=== PATIENT | female | born 2000 | race Caucasian/White ===

== ENCOUNTER 2021-06-04 11:19 | Outpatient (CLI) | payer OTHER ==
[2021-06-04 12:08] LABS: Basophils % (A) 0 %; Eosinophils % (A) 0 %; HCT 34.5 % (34.0-46.0); Lymphocytes # (A) 1.1 k/uL (1.0-4.8); Lymphocytes % (A) 10 %; MCH 31.1 pg (25.0-35.0); MCHC 34.9 g/dL (31.0-37.0); MCV 88.9 fL (80.0-100.0); Monocytes # (A) 0.3 k/uL (0-1.0); Monocytes % (A) 3 %; Neutrophils # (A) 9.3 k/uL (1.3-7.7); Neutrophils % (A) 85 %; Platelet Count 250 k/uL (150-450); RBC 3.88 m/uL (3.80-5.40); WBC 10.9 k/uL (3.8-10.6)
[2021-06-04 12:16] LABS: Protein/Creatinine Ratio,Urine 0.516
[2021-06-04 12:29] LABS: Appearance,Urine Clear (Clear); Bacteria,Urine Rare /hpf; Bilirubin,Urine Negative (Negative); Blood,Urine Negative (Negative); Color,Urine Light Yellow; Glucose,Urine (UA) Negative (Negative); Ketones,Urine Negative (Negative); Leukocyte Esterase,Urine Small (Negative); Mucus,Urine Rare /hpf; Nitrite,Urine Negative (Negative); PH, Urine 6.5 (5.0-8.0); Protein,Urine Negative (Negative); RBC,Urine 1 /hpf (0-5); Specific Gravity,Urine 1.006 (1.001-1.035); Squamous Epithelial Cell,Urine 1 /hpf (0-4); Urobilinogen,Urine <2.0 mg/dL (<2.0); WBC,Urine 2 /hpf (0-5)
[2021-06-04 12:42] LABS: ALT 15 U/L (4-34); AST 19 U/L (14-36); African American GFR (CKD) >90 (>60 ml/min/1.73 sqM); Blood Urea Nitrogen 7 mg/dL (7-17); LDH 470 U/L (313-618); Non-African American GFR(CKD) >90 (>60 ml/min/1.73 sqM); Uric Acid 4.8 mg/dL (3.7-7.4)
[2021-06-04 13:13] VITALS: BP 141/85; PULSE 99; RESP 16; TEMP 98.2
--- NOTE | 2021-06-08 18:43 | P.MSEPDOC ---
Presenting Problems - Arrival Data Date of Arrival on Unit: 06/04/21 Time of Arrival on Unit: 11:19 Mode of Transport: Stretcher - Complaint OB-Reason for Admission/Chief Complaint: PIH Comment: pt to triage with orders for pih eval Medical History - Information : 1 Para: 0 Term: 0 : 0 Abortions: Spontaneous or Elective: 0 Number of Living Children: 0 - Gestational Age Gestational Age by TOMMY (wks/days): 29 Weeks and 3 Days Review of Systems - Review of Systems Constitutional: No problems Breast: No problems ENT: No problems Cardiovascular: No problems Respiratory: No problems Gastrointestinal: No problems Genitourinary: No problems Musculoskeletal: No problems Neurological: No problems Skin: No problems Vital Signs - Temperature Temperature: 98.2 F Temperature Source: Oral - Pulse Right Sitting Pulse Rate: 99 Pulse Assessment Method: Automatic Cuff - Respirations Respiratory Rate: 16 Oxygen Delivery Method: Room Air - Blood Pressure Right Arm Blood Pressure: 141/85 Blood Pressure Mean: 103 Blood Pressure Source: Automatic Cuff Medical Screen Scoring - Assessment - Baby A Baseline FHR: 140 Heart Rate - NICHD Category: Category I (Normal) NST: Reactive Physician Notification - Physician Notified Physician Notified Date: 06/04/21 Physician Notified Time: 12:53 Physician: Lore Donovan Order Received: Yes (D/c home) Maternal Triage Index - Scheduled/Requesting Priority 5 Scheduled/Requesting Priority 5: Yes Criteria Met for Priority 5: writtin orders for PIH eval Disposition - Disposition OB Disposition: Discharge to home Discharge Date: 06/04/21 Discharge Time: 13:03 I agree with the RN Medical Screening Exam: Yes Case reviewed; plan agreed upon as documented in EMR&OBIX.: Yes Diagnosis: MILD TO MODERATE PRE-ECLAMPSIA, THIRD TRIMESTER
== END 2021-06-04 13:03 | disposition home or self-care (01) ==
LOC: FBPOP 11:19
PROVIDERS: ATTEND Obstetrics & Gynecology
DX: O14.03 Mild to moderate pre-eclampsia, third trimester (principal); Z3A.29 29 weeks gestation of pregnancy
CPT/HCPCS: 59025; 81001; 82565; 82570; 83615; 84156; 84450; 84460; 84520; 84550; 85025

== ENCOUNTER → 2021-06-16 | Outpatient (CLI) | payer OTHER ==
[2021-06-16 17:12] LABS: Appearance,Urine Clear (Clear); Bilirubin,Urine Negative (Negative); Blood,Urine Negative (Negative); Color,Urine Light Yellow; Glucose,Urine (UA) Negative (Negative); Ketones,Urine Negative (Negative); Leukocyte Esterase,Urine Negative (Negative); Nitrite,Urine Negative (Negative); Protein,Urine Negative (Negative); Specific Gravity,Urine 1.009 (1.001-1.035); Urobilinogen,Urine <2.0 mg/dL (<2.0)
[2021-06-16 17:26] LABS: Creatinine,Urine Random 62.9 mg/dL; Protein/Creatinine Ratio,Urine 0.223
[2021-06-17 00:11] LABS: HCT 32.2 % (37.2-46.3); HGB 10.7 g/dL (12.0-15.0); MCH 29.7 pg (27.0-32.0); MCHC 33.2 g/dL (32.0-37.0); MCV 89.4 fL (80.0-97.0); Mean Platelet Volume 10.9 fL (9.5-12.2); Platelet Count 246 X 10*3/uL (140-440); RDW 13.7 % (11.5-14.5)
== END | disposition home or self-care (01) ==
LOC: LABWHC1 16:03
PROVIDERS: ATTEND Obstetrics & Gynecology
DX: O13.9 Gestational [pregnancy-induced] hypertension without significant proteinuria, unspecified trimester (principal); Z3A.00 Weeks of gestation of pregnancy not specified
CPT/HCPCS: 36415; 81003; 82565; 82570; 83615; 84156; 84450; 84460; 84520; 84550; 85027

== ENCOUNTER 2021-06-26 13:17 | Outpatient (CLI) | payer OTHER ==
[2021-06-26 15:30] VITALS: BP 141/88; PULSE 66; RESP 16; TEMP 97.7
--- NOTE | 2021-06-26 15:53 | US ---
EXAMINATION TYPE: US OB BPP wo non-stress DATE OF EXAM: 06/26/2021 COMPARISON: NONE CLINICAL HISTORY: 20-year-old female gestational hypertension, pos. COVID test 06/25/21. . EXAM PERFORMED: Transabdominal (TA) with real-time observation by the air traffic systems technician FINDINGS: BPP PARAMETERS: PRESENTATION: Vertex LIE: Longitudinal?? HEART RATE: 133 bpm RHYTHM: Normal DORA: 12.8cm DIAPHRAGM IMAGED: yes BPP SCORIN. Breathin (1 episode of breathing of 30 second duration in 30 minutes of scanning time) 2. Movement: 2 (at least 3 discrete body movements in 30 minutes) 3. Tone: 2 (1 episode of active flexion/extension of limb) 4. DORA: 2 (DORA index > 5cm) IMPRESSION: TOTAL SCORE: 8 / 8
--- NOTE | 2021-06-26 18:54 | P.MSEPDOC ---
Presenting Problems - Arrival Data Date of Arrival on Unit: 06/26/21 Time of Arrival on Unit: 13:15 Mode of Transport: Portable - Complaint OB-Reason for Admission/Chief Complaint: Other Comment: preg indused hypertension. positive covid test. sent with orders . bpp,nst and bp checks, call report. Medical History - Information : 1 Para: 0 Term: 0 : 0 Abortions: Spontaneous or Elective: 0 Number of Living Children: 0 - Gestational Age Final EDC: 08/17/21 Gestational Age by TOMMY (wks/days): 84 Weeks and 5 Days - History Complications: Other Comment: high bp's Review of Systems - Review of Systems Constitutional: No problems Breast: No problems ENT: No problems Cardiovascular: No problems Respiratory: No problems Gastrointestinal: No problems Genitourinary: No problems Musculoskeletal: No problems Neurological: No problems Skin: No problems Vital Signs - Temperature Temperature: 97.7 F Temperature Source: Temporal Artery Scan - Pulse Right Radial Pulse Rate: 66 Pulse Assessment Method: Automatic Cuff - Respirations Respiratory Rate: 16 Oxygen Delivery Method: Room Air O2 Sat by Pulse Oximetry: 98 - Blood Pressure Right Arm Blood Pressure: 141/88 Blood Pressure Mean: 105 Blood Pressure Source: Automatic Cuff Medical Screen Scoring - Assessment - Baby A Baseline FHR: 135 Heart Rate - NICHD Category: Category I (Normal) NST: Reactive Physician Notification - Physician Notified Physician Notified Date: 06/26/21 Physician Notified Time: 15:00 Physician: Berto Asher Order Received: Yes - Notification Comment Comment: discharge home with instruction return saturday for repeat. Maternal Triage Index - Maternal Triage Index Presenting for scheduled procedure w/no complaint: Yes - Scheduled/Requesting Priority 5 Scheduled/Requesting Priority 5: Yes Criteria Met for Priority 5: dr order for bpp,nst and serial bps Disposition - Disposition OB Disposition: Discharge to home, Written follow up instructions reviewed Discharge Date: 06/26/21 Discharge Time: 15:05 I agree with the RN Medical Screening Exam: Yes Case reviewed; plan agreed upon as documented in EMR&OBIX.: Yes Diagnosis: GESTATIONAL HTN W/O SIGNIFICANT PROTEINURIA, THIRD TRIMESTER (Patient presents to labor and delivery for scheduled nonstress test and biophysical profile. She is being followed by maternal medicine and Dr. Jenner for gestational hypertension. Nonstress test is reassuring and biophysical was 8 out of 8. I did review her blood pressures in the. Her to be stable from her baseline. Patient was instructed to return on Saturday as scheduled at that time will have repeat blood work, nonstress test and biophysical profile.)
== END 2021-06-26 15:05 | disposition home or self-care (01) ==
LOC: FBPOP 13:17
PROVIDERS: ATTEND Obstetrics & Gynecology
DX: O13.3 Gestational [pregnancy-induced] hypertension without significant proteinuria, third trimester (principal); Z3A.34 34 weeks gestation of pregnancy
CPT/HCPCS: 59025; 76819

== ENCOUNTER → 2021-06-30 | Outpatient (CLI) | payer OTHER ==
[2021-06-30 14:09] LABS: Creatinine,Urine Random 67.2 mg/dL; Protein/Creatinine Ratio,Urine 0.238
[2021-06-30 14:23] LABS: Basophils % (A) 0 %; Eosinophils % (A) 1 %; HCT 34.3 % (34.0-46.0); Lymphocytes # (A) 0.5 k/uL (1.0-4.8); Lymphocytes % (A) 10 %; MCV 88.5 fL (80.0-100.0); Mean Platelet Volume 8.1; Monocytes # (A) 0.3 k/uL (0-1.0); Monocytes % (A) 5 %; Neutrophils # (A) 3.9 k/uL (1.3-7.7); Neutrophils % (A) 83 %; Platelet Count 185 k/uL (150-450); RBC 3.88 m/uL (3.80-5.40); RDW 13.5 % (11.5-15.5); WBC 4.7 k/uL (3.8-10.6)
[2021-06-30 14:29] LABS: ALT 36 U/L (4-34); AST 34 U/L (14-36); African American GFR (CKD) >90 (>60 ml/min/1.73 sqM); Blood Urea Nitrogen 5 mg/dL (7-17); LDH 573 U/L (313-618); Non-African American GFR(CKD) >90 (>60 ml/min/1.73 sqM); Uric Acid 4.7 mg/dL (3.7-7.4)
[2021-06-30 14:32] LABS: Amorphous Sediment,Urine Rare /hpf; Appearance,Urine Cloudy (Clear); Bacteria,Urine Occasional /hpf; Bilirubin,Urine Negative (Negative); Blood,Urine Negative (Negative); Color,Urine Yellow; Glucose,Urine (UA) Negative (Negative); Hyaline Casts,Urine 1 /lpf (0-2); Ketones,Urine Negative (Negative); Leukocyte Esterase,Urine Negative (Negative); Mucus,Urine Rare /hpf; Nitrite,Urine Negative (Negative); Protein,Urine Negative (Negative); Squamous Epithelial Cell,Urine 2 /hpf (0-4); Urobilinogen,Urine <2.0 mg/dL (<2.0); WBC,Urine 4 /hpf (0-5)
== END | disposition home or self-care (01) ==
LOC: FBPOP 12:55
PROVIDERS: ATTEND Obstetrics & Gynecology
DX: O13.9 Gestational [pregnancy-induced] hypertension without significant proteinuria, unspecified trimester (principal); Z3A.00 Weeks of gestation of pregnancy not specified
CPT/HCPCS: 81001; 82565; 82570; 83615; 84156; 84450; 84460; 84520; 84550; 85025

== ENCOUNTER 2021-07-03 12:46 | Inpatient (IN) | payer BC, OTHER ==
--- NOTE | 2021-07-03 17:45 | ED ---
General Adult HPI - General Chief complaint: Shortness of Breath Stated complaint: Covid+ Time Seen by Provider: 07/03/21 17:35 Source: patient, RN notes reviewed Mode of arrival: ambulatory Limitations: no limitations - History of Present Illness Initial comments: 20-year-old female, alert and oriented 4, presents to the emergency room with complaints of being positive for coronavirus for the past 10 days. Patient states yesterday she had a low-grade fever and took Tylenol. She states she was scheduled for a nonstress test today at 1:00 but was told to come to the emergency room for evaluation for coronavirus. She does state that she has a dr y persistent cough. She states that she has a pulse oximeter at home and it was measuring 92-93%. She states that she has had high blood pressure with this and is seeing Dr. Donovan and another doctor in [place], Dr. Gonzalez, for high risk and he opted not to put her on blood pressure medications at this time. This is her first . She denies any vaginal bleeding. She states that she does have a headache from persistent coughing no vision changes. She does not want the monoclonal antibody infusion and she has not been vaccinated. She denies any nausea vomiting or diarrhea. -: days(s) (10) Location: chest Severity scale (1-10): 7 Associated Symptoms: cough, fever/chills, other (congestion) Treatments Prior to Arrival: other (tylenol) - Related Data Home Medications Medication Instructions Recorded Confirmed Pnv No.95/Ferrous Fum/Folic AC 1 tab PO DAILY 06/04/21 07/03/21 [ Multivitamin Tablet] Acetaminophen Tab [Tylenol Tab] 1,000 mg PO Q12H PRN 06/30/21 07/03/21 Allergies Allergy/AdvReac Type Severity Reaction Status Date / Time No Known Allergies Allergy Verified 07/03/21 19:48 Review of Systems ROS Statement: Those systems with pertinent positive or pertinent negative responses have been documented in the HPI. ROS Other: All systems not noted in ROS Statement are negative. Past Medical History Additional Past Medical History / Comment(s): gestational HTN History of Any Multi-Drug Resistant Organisms: None Reported Past Psychological History: No Psychological Hx Reported Smoking Status: Never smoker Past Alcohol Use History: None Reported Past Drug Use History: None Reported General Exam Limitations: no limitations General appearance: alert, in no apparent distress Head exam: Present: atraumatic, normocephalic, normal inspection Eye exam: Present: normal appearance, EOMI. Absent: scleral icterus, conjunctival injection, periorbital swelling ENT exam: Present: normal exam, normal oropharynx, mucous membranes moist Neck exam: Present: normal inspection, full ROM. Absent: tenderness, meningismus, lymphadenopathy, thyromegaly Respiratory exam: Present: normal lung sounds bilaterally. Absent: respiratory distress, wheezes, rales, rhonchi, stridor Cardiovascular Exam: Present: tachycardia GI/Abdominal exam: Present: soft, distended. Absent: tenderness, guarding, rebound, rigid Extremities exam: Present: normal inspection, full ROM, normal capillary refill. Absent: tenderness, pedal edema, joint swelling, calf tenderness Back exam: Present: normal inspection, full ROM. Absent: tenderness, CVA t enderness (R), CVA tenderness (L), rash noted Neurological exam: Present: alert, oriented X3 Psychiatric exam: Present: normal affect, normal mood Skin exam: Present: warm, dry, intact, normal color. Absent: rash, cyanosis, diaphoretic Course Vital Signs 07/03/21 07/03/21 07/03/21 16:54 17:48 19:41 Temperature 98.9 F 98.4 F Pulse Rate 124 H 136 H 126 H Respiratory 22 18 16 Rate Blood Pressure 161/89 152/91 129/82 O2 Sat by Pulse 97 96 96 Oximetry - Reevaluation(s) Reevaluation #1: 07/03/21 20:16 Patient states that she has a headache from the persistent coughing and was offered Tylenol. Time: 20:16 EKG Findings - EKG Results: EKG: sinus rhythm EKG shows: tachycardia (Ventricular rate of 122, IA interval of 0.166, QRS 0.74, QTC 0.436) Medical Decision Making - Medical Decision Making This is a 20-year-old well-appearing female that presents to the emergency room, 33 weeks . Patient states she was scheduled for a stress test in labor and delivery today however she did test positive for coronavirus and was told to come down to be evaluated in the emergency room first. She states that her oxygen saturation was running 92-93% at home. She was offered monoclonal antibodies and she declined. She has not been vaccinated. Urinalysis shows 1+ protein, 2+ ketones, 17 wbc's and few bacteria. She was given a gram of Rocephin IV for asymptomatic bacteriuria. She was also given a 1000 mL bolus. Patient's blood pressure has improved without intervention. She denies any blurred vision and states headache with coughing. Her LDH is 863 AST 64 ALT 71. I did speak with Dr. Perez at 1958, He evaluated patient in the emergency room at 2210 and she'll be transferred to [facility] by Dr. Villanueva to be treated by Dr. Barrera. Patient is agreeable to this plan of care. I also discussed this case with Dr. Mandel. - Lab Data Result diagrams: 07/03/21 17:54 07/03/21 17:54 Lab Results 07/03/21 07/03/21 07/03/21 Range/Units 17:54 17:54 17:54 WBC 6.5 (3.8-10.6) k/uL RBC 4.01 (3.80-5.40) m/uL Hgb 12.7 (11.4-16.0) gm/dL Hct 34.6 (34.0-46.0) % MCV 86.3 (80.0-100.0) fL MCH 31.6 (25.0-35.0) pg MCHC 36.7 (31.0-37.0) g/dL RDW 14.1 (11.5-15.5) % Plt Count 183 (150-450) k/uL MPV 8.7 Neutrophils % 84 % Lymphocytes % 12 % Monocytes % 3 % Eosinophils % 0 % Basophils % 0 % Neutrophils # 5.5 (1.3-7.7) k/uL Lymphocytes # 0.8 L (1.0-4.8) k/uL Monocytes # 0.2 (0-1.0) k/uL Eosinophils # 0.0 (0-0.7) k/uL Basophils # 0.0 (0-0.2) k/uL Manual Slide Review Performed Toxic Granulation Present RBC Morphology Normal Hyperchromasia Moderate Sodium 135 L (137-145) mmol/L Potassium 3.3 L (3.5-5.1) mmol/L Chloride 108 H (98-107) mmol/L Carbon Dioxide 19 L (22-30) mmol/L Anion Gap 8 mmol/L BUN 5 L (7-17) mg/dL Creatinine 0.48 L (0.52-1.04) mg/dL Est GFR (CKD-EPI)AfAm >90 (>60 ml/min/1.73 sqM) Est GFR (CKD-EPI)NonAf >90 (>60 ml/min/1.73 sqM) Glucose 124 H (74-99) mg/dL Uric Acid 4.7 (3.7-7.4) mg/dL Calcium 8.7 (8.4-10.2) mg/dL Total Bilirubin 0.8 (0.2-1.3) mg/dL AST 64 H (14-36) U/L ALT 71 H (4-34) U/L Alkaline Phosphatase 137 H (38-126) U/L Lactate Dehydrogenase 863 H (313-618) U/L Total Protein 6.0 L (6.3-8.2) g/dL Albumin 3.3 L (3.5-5.0) g/dL Urine Color Yellow Urine Appearance Cloudy H (Clear) Urine pH 6.5 (5.0-8.0) Ur Specific [place] 1.019 (1.001-1.035) Urine Protein 1+ H (Negative) Urine Glucose (UA) Negative (Negative) Urine Ketones 2+ H (Negative) Urine Blood Negative (Negative) Urine Nitrite Negative (Negative) Urine Bilirubin Negative (Negative) Urine Urobilinogen 2.0 (<2.0) mg/dL Ur Leukocyte Esterase Large H (Negative) Urine RBC 2 (0-5) /hpf Urine WBC 17 H (0-5) /hpf Ur Squamous Epith Cells 8 H (0-4) /hpf Urine Bacteria Few H (None) /hpf Hyaline Casts 1 (0-2) /lpf Urine Mucus Few H (None) /hpf Disposition Clinical Impression: Preeclampsia Disposition: OTHER INSTITUTION NOT DEFINED Condition: Stable Is patient prescribed a controlled substance at d/c from ED?: No Time of Disposition: 22:12
[2021-07-03 17:49] VITALS: TEMP 98.4
[2021-07-03] MEDS ORDERED: SODIUM CHLORIDE 0.9% 500 ML 500 ML IV ONE (17:55)
[2021-07-03 18:15] LABS: ALT 71 U/L (4-34); AST 64 U/L (14-36); African American GFR (CKD) >90 (>60 ml/min/1.73 sqM); Albumin 3.3 g/dL (3.5-5.0); Alkaline Phosphatase 137 U/L (38-126); Anion Gap 8 mmol/L; Blood Urea Nitrogen 5 mg/dL (7-17); Calcium 8.7 mg/dL (8.4-10.2); Carbon Dioxide 19 mmol/L (22-30); Chloride 108 mmol/L (98-107); Glucose 124 mg/dL (74-99); LDH 863 U/L (313-618); Non-African American GFR(CKD) >90 (>60 ml/min/1.73 sqM); Potassium 3.3 mmol/L (3.5-5.1); Sodium 135 mmol/L (137-145); Total Bilirubin 0.8 mg/dL (0.2-1.3); Uric Acid 4.7 mg/dL (3.7-7.4)
[2021-07-03 18:21] LABS: Appearance,Urine Cloudy (Clear); Bacteria,Urine Few /hpf; Bilirubin,Urine Negative (Negative); Blood,Urine Negative (Negative); Color,Urine Yellow; Glucose,Urine (UA) Negative (Negative); Hyaline Casts,Urine 1 /lpf (0-2); Ketones,Urine 2+ (Negative); Leukocyte Esterase,Urine Large (Negative); Mucus,Urine Few /hpf; Nitrite,Urine Negative (Negative); PH, Urine 6.5 (5.0-8.0); Protein,Urine 1+ (Negative); RBC,Urine 2 /hpf (0-5); Specific Gravity,Urine 1.019 (1.001-1.035); Squamous Epithelial Cell,Urine 8 /hpf (0-4); WBC,Urine 17 /hpf (0-5)
[2021-07-03] MEDS ORDERED: cefTRIAXone IN SWFI 1,000 MG/10 ML SYRINGE IVP STA (18:36)
[2021-07-03 19:27] LABS: Basophils % (A) 0 %; Eosinophils % (A) 0 %; HCT 34.6 % (34.0-46.0); HGB 12.7 gm/dL (11.4-16.0); Hyperchromasia Moderate; Lymphocytes # (A) 0.8 k/uL (1.0-4.8); Lymphocytes % (A) 12 %; MCH 31.6 pg (25.0-35.0); MCHC 36.7 g/dL (31.0-37.0); MCV 86.3 fL (80.0-100.0); Mean Platelet Volume 8.7; Monocytes # (A) 0.2 k/uL (0-1.0); Monocytes % (A) 3 %; Neutrophils # (A) 5.5 k/uL (1.3-7.7); Neutrophils % (A) 84 %; Platelet Count 183 k/uL (150-450); RBC 4.01 m/uL (3.80-5.40); RDW 14.1 % (11.5-15.5); WBC 6.5 k/uL (3.8-10.6)
[2021-07-03 19:42] VITALS: BP 129/82; PULSE 126; RESP 16
[2021-07-03] MEDS ORDERED: SODIUM CHLORIDE 0.9% 500 ML 500 ML IV STA (19:58)
[2021-07-03] MEDS ORDERED: NALOXONE 0.4 MG/ML 1 ML VIAL IV PRN (20:02)
[2021-07-03] MEDS ORDERED: ACETAMINOPHEN TAB 325 MG TAB PO PRN (20:02)
[2021-07-03 20:04] LABS: Toxic Granulation Present
[2021-07-03] MEDS ORDERED: BETAMET ACET-BETAMETH SOD PHOS 6 MG/ML MDV IM SCH (20:30)
--- NOTE | 2021-07-03 20:42 | P.TRANS ---
Providers Expected date of discharge: 07/03/21 Primary care physician: Moises Bess Kaiser Hospital Course: HERMILO is a 20-year-old 1. As 0 at 33 weeks gestation who has a history of gestational hypertension and gestational diabetes for which she has previously seen maternal medicine in [place]. Today she had worsening of symptoms of her coated that was diagnosed 8 days ago. She had a cough and some congestion- like symptoms for which she came to the emergency room. In the emergency room she had initial blood pressure 160/90 followed by 155/90. They did were pre- clamped labs. All this was done without notifying myself. I was recently notified of her presence in the emergency room and labs and blood pressures. She did have a series of preeclamptic labs drawn on June 16 showing normal AST and ALTs of 14 and an LDH of 176 as well as a normal platelet count of 246 she has had reactive nonstress tests and biophysical profiles done both locally and with maternal medicine. Her labs however through emergency room today reveal elevation of both AST and Janee in the 65-70 range and a LDH of 863 with platelets decreased to 183. While platelets are normal it is decreased from prior sample. Her latest blood pressure with some hydration and symptom control is 120/80. He was provided with an antibiotic in the ED for possible bladder infection. She did have 2+ ketones as well as 1+ blood on their sample. We have added a protein creatinine ratio and are planning to give 1 dose of Celestone as precaution for stimulation of lung maturity. The initial plan from my standpoint was to admit her and observe her with serial blood pressures and nonstress test and biophysical profile with repeat labs in the morning, however, in speaking with maternal medicine they would feel more comfortable if we transfer her this evening and had them do a more detailed evaluation. We'll go and discuss with the patient the current plan. And arrange for transfer. Otherwise her vital signs show tachycardia with a heart rate in the 120s which could be the result of her dehydration or Covid. On physical exam Heart regular but tachycardic, lungs essentially clear. She does have some abdominal cramping we are sending and delivery nurses down to do a nonstress test at this time. She is otherwise in no significant acute distress and her primary complaint is coughing and congestion. Patient Condition at Discharge: Stable Plan - Transfer Summary Transfer Medications: Active Medications Generic Name Dose Route Start Last Admin Trade Name Freq PRN Reason Stop Dose Admin Acetaminophen 650 mg 07/03/21 20:02 Acetaminophen Tab 325 Mg Tab PO Q6HR PRN Mild Pain or Fever > 100.5 Betamethasone Acet/Betameth SodPhos 12 mg 07/03/21 20:30 Betamet Acet-Betameth Sod Phos 6 Mg/Ml Mdv IM 07/04/21 20:31 Q24H ANSHUL Naloxone HCl 0.2 mg 07/03/21 20:02 Naloxone 0.4 Mg/Ml 1 Ml Vial IV Q2M PRN Opioid Reversal Follow up Appointment(s)/Referral(s): Moises Del Rosario MD [Primary Care Provider] - 1-2 days
[2021-07-03 22:21] LABS: Creatinine,Urine Random 164.7 mg/dL; Protein/Creatinine Ratio,Urine 0.182
== END 2021-07-03 23:52 | disposition short-term general hospital (02) | DRG 831 ==
LOC: EC 12:46 → 4FBP 20:03
PROVIDERS: ADMIT Obstetrics & Gynecology; ATTEND Obstetrics & Gynecology
DX: O98.513 Other viral diseases complicating pregnancy, third trimester (principal); U07.1 COVID-19; Z3A.33 33 weeks gestation of pregnancy; O24.419 Gestational diabetes mellitus in pregnancy, unspecified control; O13.3 Gestational [pregnancy-induced] hypertension without significant proteinuria, third trimester; E86.0 Dehydration; Z53.29 Procedure and treatment not carried out because of patient's decision for other reasons
CPT/HCPCS: 36415; 80053; 81001; 82570; 83615; 84156; 84550; 85025; 87086; 87635; 93005

== ENCOUNTER 2021-07-04 20:12 | Outpatient (CLI) | payer BC, OTHER ==
[2021-07-04] MEDS ORDERED: BETAMET ACET-BETAMETH SOD PHOS 6 MG/ML MDV IM ONE (20:30)
[2021-07-04 21:31] VITALS: PULSE 120
== END 2021-07-04 20:40 | disposition home or self-care (01) ==
LOC: FBPOP 20:12
PROVIDERS: ATTEND Obstetrics & Gynecology
DX: O14.90 Unspecified pre-eclampsia, unspecified trimester (principal); Z3A.00 Weeks of gestation of pregnancy not specified
CPT/HCPCS: 96372; J0702

== ENCOUNTER 2021-07-07 13:05 | Outpatient (CLI) | payer BC, OTHER ==
[2021-07-07 14:15] VITALS: BP 122/86; PULSE 104; RESP 16; TEMP 97.5
--- NOTE | 2021-07-09 07:59 | P.MSEPDOC ---
Presenting Problems - Arrival Data Date of Arrival on Unit: 07/07/21 Time of Arrival on Unit: 13:05 Mode of Transport: Ambulatory - Complaint OB-Reason for Admission/Chief Complaint: NST Comment: Pt arrives to triage for bi-weekly NST. Medical History - Information : 1 Para: 0 Term: 0 : 0 Abortions: Spontaneous or Elective: 0 Number of Living Children: 0 - Gestational Age Gestational Age by TOMMY (wks/days): 34 Weeks and 1 Days Review of Systems - Review of Systems Constitutional: No problems Breast: No problems ENT: No problems Cardiovascular: No problems Respiratory: No problems Gastrointestinal: No problems Genitourinary: No problems Musculoskeletal: No problems Neurological: No problems Skin: No problems Vital Signs - Temperature Temperature: 97.5 F Temperature Source: Oral - Pulse Pulse Oximetery Pulse Rate: 104 Pulse Assessment Method: Pulse Oximetry - Respirations Respiratory Rate: 16 Oxygen Delivery Method: Room Air O2 Sat by Pulse Oximetry: 96 - Blood Pressure Right Arm Blood Pressure: 122/86 Blood Pressure Mean: 98 Blood Pressure Source: Automatic Cuff Medical Screen Scoring - Assessment - Baby A Baseline FHR: 140 Heart Rate - NICHD Category: Category I (Normal) NST: Reactive Physician Notification - Physician Notified Physician Notified Date: 07/07/21 Physician Notified Time: 13:59 Physician: Berto Asher New Order Received: Yes - Notification Comment Comment: Orders to discharge patient home. Maternal Triage Index - Maternal Triage Index Presenting for scheduled procedure w/no complaint: Yes - Scheduled/Requesting Priority 5 Scheduled/Requesting Priority 5: Yes Criteria Met for Priority 5: Bi-weekly NST Disposition - Disposition OB Disposition: Discharge to home Discharge Date: 07/07/21 Discharge Time: 14:00 I agree with the RN Medical Screening Exam: Yes Case reviewed; plan agreed upon as documented in EMR&OBIX.: Yes Diagnosis: RELATED CONDITIONS, UNSPECIFIED, THIRD TRIMESTER Additional Diagnoses: Patient presented to triage for a nonstress test per in order given by her primary chain maker loom control. Unfortunately there is no documentation of the indication for the nonstress test. Regardless, nonstress testing is normal and heart tones are category 1. Patient's discharge home follow up as instructed by her primary chain maker loom control.
== END 2021-07-07 14:00 | disposition home or self-care (01) ==
LOC: FBPOP 13:05
PROVIDERS: ATTEND Obstetrics & Gynecology
DX: O26.93 Pregnancy related conditions, unspecified, third trimester (principal); Z3A.34 34 weeks gestation of pregnancy
CPT/HCPCS: 59025; 99213

== ENCOUNTER 2021-07-10 12:59 | Outpatient (CLI) | payer BC, OTHER ==
[2021-07-10 14:25] LABS: Creatinine,Urine Random 114.7 mg/dL; Protein/Creatinine Ratio,Urine 0.157
[2021-07-10 14:26] LABS: Appearance,Urine Cloudy (Clear); Bacteria,Urine Few /hpf; Bilirubin,Urine Negative (Negative); Blood,Urine Negative (Negative); Budding Yeast,Urine Occasional /hpf; Color,Urine Yellow; Glucose,Urine (UA) Negative (Negative); Ketones,Urine Negative (Negative); Leukocyte Esterase,Urine Large (Negative); Mucus,Urine Rare /hpf; Nitrite,Urine Negative (Negative); PH, Urine 6.5 (5.0-8.0); Protein,Urine Trace (Negative); RBC,Urine 1 /hpf (0-5); Specific Gravity,Urine 1.021 (1.001-1.035); Squamous Epithelial Cell,Urine 6 /hpf (0-4); WBC,Urine 31 /hpf (0-5)
[2021-07-10 14:44] LABS: Basophils % (A) 0 %; Eosinophils # (A) 0.1 k/uL (0-0.7); Eosinophils % (A) 1 %; HCT 31.2 % (34.0-46.0); HGB 11.3 gm/dL (11.4-16.0); Hyperchromasia Slight; Lymphocytes % (A) 14 %; MCH 30.9 pg (25.0-35.0); MCHC 36.2 g/dL (31.0-37.0); MCV 85.3 fL (80.0-100.0); Mean Platelet Volume 8.2; Monocytes # (A) 0.3 k/uL (0-1.0); Monocytes % (A) 4 %; Neutrophils % (A) 80 %; Platelet Count 307 k/uL (150-450); RBC 3.66 m/uL (3.80-5.40); RDW 13.8 % (11.5-15.5); WBC 7.5 k/uL (3.8-10.6)
[2021-07-10 14:52] LABS: ALT 278 U/L (4-34); AST 98 U/L (14-36); African American GFR (CKD) >90 (>60 ml/min/1.73 sqM); Blood Urea Nitrogen 9 mg/dL (7-17); LDH 643 U/L (313-618); Non-African American GFR(CKD) >90 (>60 ml/min/1.73 sqM); Uric Acid 4.8 mg/dL (3.7-7.4)
[2021-07-10 15:43] VITALS: BP 134/81; PULSE 117; RESP 16; TEMP 97.9
--- NOTE | 2021-07-11 07:34 | P.MSEPDOC ---
Presenting Problems - Arrival Data Date of Arrival on Unit: 07/10/21 Time of Arrival on Unit: 12:59 Mode of Transport: Ambulatory - Complaint OB-Reason for Admission/Chief Complaint: NST, Other Comment: Written orders per Dr. Donovan for PIH labs and NST. Medical History - Information : 1 Para: 0 Term: 0 : 0 Abortions: Spontaneous or Elective: 0 Number of Living Children: 0 - Gestational Age Gestational Age by TOMMY (wks/days): 34 Weeks and 4 Days Review of Systems - Review of Systems Constitutional: No problems Breast: No problems ENT: No problems Cardiovascular: No problems Respiratory: No problems Gastrointestinal: No problems Genitourinary: No problems Musculoskeletal: No problems Neurological: No problems Skin: No problems Vital Signs - Temperature Temperature: 97.9 F Temperature Source: Temporal Artery Scan - Pulse Right Brachial Pulse Rate: 117 Pulse Assessment Method: Automatic Cuff - Respirations Respiratory Rate: 16 Oxygen Delivery Method: Room Air - Blood Pressure Right Arm Blood Pressure: 134/81 Blood Pressure Mean: 98 Blood Pressure Source: Automatic Cuff Medical Screen Scoring - Assessment - Baby A Baseline FHR: 140 Heart Rate - NICHD Category: Category I (Normal) NST: Reactive Physician Notification - Physician Notified Physician Notified Date: 07/10/21 Physician Notified Time: 15:19 Physician: Lore Donovan Order Received: Yes - Notification Comment Comment: Dr. Donovan called back to give orders. Orders recieved to d/c pt to home. To. educate pt to come back if symptoms noted. To educate pt to keep apt with Dr. Donovan for. 07/12. Maternal Triage Index - Stat/Priority 1 Stat Priority 1: No - Urgent/Priority 2 Urgent Priority 2: No - Prompt/Priority 3 Prompt Priority 3: No - Non-Urgent/Priority 4 Non-Urgent Priority 4: No - Scheduled/Requesting Priority 5 Scheduled/Requesting Priority 5: Yes Criteria Met for Priority 5: Written orders for PIH labs and NST. Disposition - Disposition OB Disposition: Discharge to home Discharge Date: 07/10/21 Discharge Time: 15:30 I agree with the RN Medical Screening Exam: Yes Case reviewed; plan agreed upon as documented in EMR&OBIX.: Yes Diagnosis: MILD TO MODERATE PRE-ECLAMPSIA, THIRD TRIMESTER
== END 2021-07-10 15:30 | disposition home or self-care (01) ==
LOC: FBPOP 12:59
PROVIDERS: ATTEND Obstetrics & Gynecology
DX: O14.03 Mild to moderate pre-eclampsia, third trimester (principal); O13.9 Gestational [pregnancy-induced] hypertension without significant proteinuria, unspecified trimester; O14.90 Unspecified pre-eclampsia, unspecified trimester; Z3A.34 34 weeks gestation of pregnancy
CPT/HCPCS: 59025; 81001; 82565; 82570; 83615; 84156; 84450; 84460; 84520; 84550; 85025; 99213

== ENCOUNTER 2021-07-27 05:53 | Inpatient (IN) | payer BC, OTHER ==
--- NOTE | 2021-07-26 15:01 | P.HPOB ---
History of Present Illness H&P Date: 07/26/21 Chief Complaint: Pre-eclampsia without severe features This is a 20 y.o. female, 1, para 0, with an estimated date of confinement of 08/17/2021, estimated gestational age of 37-0/7 weeks who presents for induction of labor due to gestational hypertension and pre-eclampsia without severe features. She is feeling irregular contractions and pressure. She does get occasional headaches. She has been seeing [facility] since about 30 weeks and she did have elevated transaminases and P/C ratio. Lately these have improved and she is not on antihypertensives. [facility] recommends delivery at 37 weeks. In addition she recently had COVID and has recovered. OB Hx: Electronic Assembler Hx: No history of STDs Social Hx: Single. Works full-time as MA. Labs: Hepatitis B surface antigen-neg RPR-NR [id number] Blood type-A+ Antibody screen-neg HIV-NR Hemoglobin-12.6 Toxoplasma-neg Random glucose-86 GC/Chlamydia/Trich-neg 1 hr. GTT- 103 GBS-neg Review of Systems Constitutional: Denies chills, Denies fever Eyes: denies blurred vision, denies pain Ears, nose, mouth and throat: Reports headache (occ), Denies sore throat Cardiovascular: Denies chest pain, Denies shortness of breath Respiratory: Denies cough Gastrointestinal: Reports abdominal pain (irregular contractions), Denies diarrhea, Denies nausea, Denies vomiting Genitourinary: Reports pelvic pain, Reports Musculoskeletal: Reports low back pain Integumentary: Denies pruritus, Denies rash Neurological: Denies numbness, Denies weakness Past Medical History Additional Past Medical History / Comment(s): gestational HTN History of Any Multi-Drug Resistant Organisms: None Reported Additional Past Surgical History / Comment(s): [place] teeth Past Anesthesia/Blood Transfusion Reactions: No Reported Reaction Past Psychological History: No Psychological Hx Reported Smoking Status: Never smoker Past Alcohol Use History: None Reported Past Drug Use History: None Reported - Past Family History Father Family Medical History: Hypertension Medications and Allergies Home Medications Medication Instructions Recorded Confirmed Type Pnv No.95/Ferrous Fum/Folic AC 1 tab PO DAILY 06/04/21 07/10/21 History [ Multivitamin Tablet] Acetaminophen Tab [Tylenol Tab] 1,000 mg PO DIRECTED PRN 06/30/21 07/10/21 History Allergies Allergy/AdvReac Type Severity Reaction Status Date / Time No Known Allergies Allergy Verified 07/10/21 13:12 Exam Osteopathic Statement: *. No significant issues noted on an osteopathic structural exam other than those noted in the History and Physical/Consult. HEENT: within normal limits Heart: regular rate and rhythm Lungs: clear to auscultation bilaterally Abdomen: , non-tender Cervix: 3.5-4 cm/80%/-1 heart tones: 140's by doppler Extremities: neg. Robert's. Assessment and Plan (1) Preeclampsia Narrative/Plan: without severe features Status: Acute Code(s): O14.90 - UNSPECIFIED PRE-ECLAMPSIA, UNSPECIFIED TRIMESTER SNOMED Code(s): 019529898 Plan: Proceed with oxytocin induction of labor. Expectant management. Epidural anesthesia if desired.
[2021-07-27] MEDS ORDERED: OXYTOCIN 30 UNITS/500 ML NS 30 UNIT in SALINE 1 500ML.BAG IV SCH ×2 (06:09→14:00)
[2021-07-27] MEDS ORDERED: METHYLERGONOVINE 0.2 MG/ML 1 ML AMP IM PRN (06:09)
[2021-07-27] MEDS ORDERED: LIDOCAINE 1% (10MG/ML) FOR IV START INTRADERMA PRN (06:09)
[2021-07-27] MEDS ORDERED: OXYTOCIN 10 UNIT/ML 1 ML VIAL IM PRN (06:09)
[2021-07-27] MEDS ORDERED: LIDOCAINE 0.5% (PF) 5 MG/ML (50 ML SDV) SQ PRN (06:09)
[2021-07-27] MEDS ORDERED: TERBUTALINE 1 MG/ML VIAL SQ PRN (06:09)
[2021-07-27] MEDS ORDERED: CARBOPROST TROMETHAMINE 250 MCG/ML 1 ML AMP IM PRN (06:09)
[2021-07-27] MEDS ORDERED: LACTATED RINGERS 1,000 ML IV SCH (06:09)
[2021-07-27 06:32] LABS: Basophils % (A) 0 %; Eosinophils # (A) 0.1 k/uL (0-0.7); Eosinophils % (A) 1 %; HCT 33.8 % (34.0-46.0); Lymphocytes # (A) 1.3 k/uL (1.0-4.8); Lymphocytes % (A) 13 %; MCH 31.4 pg (25.0-35.0); MCHC 35.4 g/dL (31.0-37.0); MCV 88.8 fL (80.0-100.0); Mean Platelet Volume 8.3; Monocytes # (A) 0.4 k/uL (0-1.0); Monocytes % (A) 4 %; Neutrophils # (A) 7.6 k/uL (1.3-7.7); Neutrophils % (A) 81 %; Platelet Count 232 k/uL (150-450); RDW 13.6 % (11.5-15.5); WBC 9.4 k/uL (3.8-10.6)
[2021-07-27 06:42] LABS: Glucose,Urine (UA) Negative (Negative); Ketones,Urine 1+ (Negative); Protein,Urine 1+ (Negative)
[2021-07-27] MEDS ORDERED: BUTORPHANOL 1 MG/ML 1 ML VIAL IV PRN (10:48)
[2021-07-27] MEDS ORDERED: .fentaNYL (PF) 50 MCG/ML 2 ML AMP ONE (13:06)
[2021-07-27] MEDS ORDERED: LIDOCAINE 1% INJ 10MG/ML (20 ML MDV) ONE (13:06)
[2021-07-27] MEDS ORDERED: SODIUM CHLORIDE 0.9% 100 ML BAG ONE (13:06)
[2021-07-27] MEDS ORDERED: ceFAZolin 1,000 MG VIAL ONE (13:06)
[2021-07-27] MEDS ORDERED: SUCCINYLCHOLINE CHLORIDE 100 MG/5 ML SYR IV ONE (13:06)
[2021-07-27] MEDS ORDERED: MIDAZOLAM 2 MG/2 ML VIAL ONE (13:06)
[2021-07-27] MEDS ORDERED: PROPOFOL 10 MG/ML 20 ML VIAL IV ONE (13:06)
[2021-07-27 13:32] LABS: Basophils % (A) 0 %; Eosinophils % (A) 0 %; HCT 28.3 % (34.0-46.0); HGB 10.2 gm/dL (11.4-16.0); Lymphocytes # (A) 0.6 k/uL (1.0-4.8); Lymphocytes % (A) 5 %; MCH 32.2 pg (25.0-35.0); MCHC 36.2 g/dL (31.0-37.0); MCV 88.9 fL (80.0-100.0); Mean Platelet Volume 8.8; Monocytes # (A) 0.2 k/uL (0-1.0); Monocytes % (A) 2 %; Neutrophils # (A) 10.5 k/uL (1.3-7.7); Neutrophils % (A) 93 %; Platelet Count 204 k/uL (150-450); RBC 3.18 m/uL (3.80-5.40); RDW 13.7 % (11.5-15.5); WBC 11.3 k/uL (3.8-10.6)
[2021-07-27 13:41] LABS: INR 0.9 (<1.2); Prothrombin Time 9.5 sec (9.0-12.0)
--- NOTE | 2021-07-27 13:57 | P.PROBDLV ---
Vaginal Delivery Note - . Vaginal Delivery Note: Progressed to complete dilation after oxytocin induction of labor and artificial rupture membranes with clear fluid noted. Once she reached complete, she began pushing. She pushed for a little over an hour and then brought infant's head to a crown. With one further push, the infant's head delivered across the perineum in a right occiput anterior lie. A nuchal hand delivered with the head and then the posterior shoulder was delivered first followed by the anterior shoulder. The remainder the easily delivered and was placed on mother's abdomen. Cord was clamped and cut and infant was taken to warmer for evaluation. A viable male infant is noted with scores of 8 at 1 minute and 8 at 5 minutes and weight of 7 pounds 0.3 ounces. At this time placenta was not ready to separate and therefore inspection of the perineum revealed a second-d egree perineal laceration. This area was anesthetized with 1% lidocaine and then sutured with 3-0 and 2-0 Vicryl suture in the usual multilayer fashion. After this was repaired, the placenta delivered intact with a three-vessel cord. At this time uterus initially did firm up but it bleeding was still fairly brisk. Her bladder was drained with a catheter. A gloved hand was placed within the uterine cavity and no further placental tissue was palpated. Clots were removed. Uterus did seem to firm up with opening up oxytocin and Methergine was also given. Inspection of the perineum was difficult due to brisk bleeding. A suction was placed on the wall and even was suctioning it was difficult to visualize where the bleeding was coming from. It appeared that there was a little further extension of the initial second-degree tear that was earlier repaired. At this point in time the decision was made to proceed to the operating room due to patient discomfort and lack of visualization. 2 sponges were placed within the vagina for packing and the remainder the sponges were correctly counted. Consent form for exam under anesthesia and repair of vaginal lesion and/or D&C was obtained. Estimated blood loss from vaginal delivery by quantitative blood loss appeared to be 2000 mL's.
--- NOTE | 2021-07-27 13:57 | P.OP ---
Date of Procedure: 07/27/21 Preoperative Diagnosis: hemorrhage Postoperative Diagnosis: Vaginal laceration Procedure(s) Performed: Exam under anesthesia, repair of vaginal laceration Anesthesia: ANDRES Surgeon: Lore Donovan Hr Specialist #1: Kiara Orellana Estimated Blood Loss (ml): 50 Pathology: none sent Condition: stable Disposition: floor Indications for Procedure: Please see vaginal delivery note for details of patient delivery. In light of lack of visualization and patient discomfort along with brisk bleeding, the decision is made to proceed to the operating room for exam under anesthesia and possible repair of vaginal laceration, possible dilation and curettage. Consents are obtained from the patient. Operative Findings: Uterus appears firm in the operating room with no active bleeding coming from the cervix. Cervix appears intact with no lacerations. There is an extension of the second-degree vaginal laceration upwards towards the vaginal apex on the posterior side and also a right vaginal laceration was noted. Description of Procedure: The patient is taken to the operating room where she is placed in the dorsal lithotomy position after general anesthesia is given. A right angle retractor is used to visualize the cervix and suction was carried out to better visualize the vaginal roberson. 2-0 Vicryl suture is used to suture the extension of the midline vaginal tear. This is sutured in a running locked fashion. There is also some oozing on the right vaginal wall sulcus area this is also sutured with 3-0 Vicryl suture in a running locked fashion. Several interrupted stitches also are placed for hemostasis. Once this was carried out, no active bleeding was noted. The cervix was then walked with ring forceps all the way around to make sure no cervical lacerations were present. A gloved hand was placed within the uterine cavity and no further placental tissue was obtained. Blood clots were removed from the vaginal vault prior to starting the surgery. Estimated blood loss from the surgery itself was approximately 50 mL's. At the conclusion of the surgery, patient is in stable condition. Her family is given an update on that is and the operative findings. The patient therefore had a repair of a second-degree perineal laceration and a right vaginal sulcus tear.
[2021-07-27] MEDS ORDERED: BENZOCAINE/MENTHOL SPRAY 1 GM/SPRAY AEROSOL TOPICAL PRN (14:00)
[2021-07-27] MEDS ORDERED: LANOLIN CREAM 5 GM TUBE TOPICAL PRN (14:00)
[2021-07-27] MEDS ORDERED: diphenhydrAMINE 25 MG CAP PO PRN (14:00)
[2021-07-27] MEDS ORDERED: ZOLPIDEM 5 MG TAB PO PRN (14:00)
[2021-07-27] MEDS ORDERED: SIMETHICONE 80 MG CHEWABLE PO PRN (14:00)
[2021-07-27] MEDS ORDERED: HYDROCORTISONE 2.5% RECTAL CREAM 30 GM TUBE RECTAL PRN (14:00)
[2021-07-27] MEDS ORDERED: diphenhydrAMINE 50 MG CAP PO PRN (14:00)
[2021-07-27] MEDS ORDERED: diphenhydrAMINE 50 MG/ML 1 ML VIAL IVP PRN ×2 (14:00)
[2021-07-27] MEDS: PRENATAL VIT-IRON-FOLIC ACID 1 EACH CAP PO SCH (14:16)
[2021-07-27] MEDS: IBUPROFEN 600 MG TAB PO PRN ×2 (14:32→20:53)
[2021-07-27] MEDS: ACETAMINOPHEN TAB 325 MG TAB PO PRN (17:31)
[2021-07-27] MEDS ORDERED: MEASLES-MUMPS-RUBELLA VACC/PF 12,500 UNIT/0.5 ML VIAL SQ ONE (17:44)
[2021-07-27] MEDS: SENNOSIDES-DOCUSATE SODIUM 1 EACH TAB PO SCH (20:53)
[2021-07-28] MEDS: ACETAMINOPHEN TAB 325 MG TAB PO PRN (00:37)
[2021-07-28 06:13] LABS: Basophils % (A) 0 %; Eosinophils % (A) 1 %; HCT 26.1 % (34.0-46.0); HGB 9.2 gm/dL (11.4-16.0); Lymphocytes # (A) 1.7 k/uL (1.0-4.8); Lymphocytes % (A) 18 %; MCHC 35.2 g/dL (31.0-37.0); MCV 90.9 fL (80.0-100.0); Mean Platelet Volume 8.7; Monocytes # (A) 0.5 k/uL (0-1.0); Monocytes % (A) 5 %; Neutrophils # (A) 7.5 k/uL (1.3-7.7); Neutrophils % (A) 76 %; Platelet Count 208 k/uL (150-450); RBC 2.87 m/uL (3.80-5.40); RDW 14.1 % (11.5-15.5); WBC 9.8 k/uL (3.8-10.6)
--- NOTE | 2021-07-28 08:38 | P.DS ---
Providers Date of admission: 07/27/21 05:53 Expected date of discharge: 07/28/21 Attending physician: Lore Donovan Primary care physician: Stated None - Discharge Diagnosis(es) (1) Preeclampsia Current Visit: No Status: Acute Hospital Course: This is a 20-year-old female 1 para 0 at 37-0/7 weeks who presented for induction of labor secondary to preeclampsia without severe features. She underwent oxytocin induction of labor and delivered vaginally a viable male infant on 07/27/2021 with scores of 8 at 1 minute and 8 at 5 minutes and infant weight of 7 pounds 0.3 ounces. she did require an exam under anesthesia and repair of vaginal laceration under anesthesia after delivery due to inadequate visualization and maternal discomfort shortly after delivery. She did have a significant amount of blood loss at that time. Her hemoglobin started at 12.2 and on postoperative day #1 is now 9.2. She denies any headaches or blurry vision. She did initially have a little bit of shortness of breath that has resolved. She denies any dizziness or lightheadedness. Vital signs are stable. Abdomen is soft with fundus firm and nontender. Extremities show negative Homans. Impression is status post vaginal delivery with hemorrhage day #1. Plan is to discharge home later today as long as baby can go home. She is instructed to continue taking her vitamins and additional iron. She is also encouraged to take stool softeners. I have advised her to follow up in the office in about 2 weeks for a postop check. Routine instructions are given. She is advised to call the office if she has any further questions or concerns prior to her postoperative or visit. She will be given a prescription for ibuprofen and a breast pump. Procedures: [place] induction of labor Spontaneous vaginal delivery of a viable male on 07/27/2021 Examined under anesthesia and repair of vaginal laceration on 07/27/2021 Patient Condition at Discharge: Stable Plan - Discharge Summary New Discharge Prescriptions: New Ibuprofen [Motrin] 600 mg PO Q6HR PRN #60 tab PRN Reason: Mild Pain (Scale 1 To 3) Continue Pnv No.95/Ferrous Fum/Folic AC [ Multivitamin Tablet] 1 tab PO DAILY No Action Acetaminophen Tab [Tylenol Tab] 1,000 mg PO DIRECTED PRN PRN Reason: Fever And/ Or Pain Discharge Medication List Pnv No.95/Ferrous Fum/Folic AC [ Multivitamin Tablet] 1 tab PO DAILY 06/04/21 [History] Acetaminophen Tab [Tylenol Tab] 1,000 mg PO DIRECTED PRN 06/30/21 [History] Ibuprofen [Motrin] 600 mg PO Q6HR PRN #60 tab 07/28/21 [Rx] Follow up Appointment(s)/Referral(s): Lore Donovan DO [Doctor of Osteopathic Medicine] - 09/05/21 11:30 am (Early follow up appt. in 2 weeks) Activity/Diet/Wound Care/Special Instructions: Instructions 1. Do not begin any exercise program for 3 weeks. 2. Do not resume sexual relations for 3 weeks or longer if uncomfortable. 3. You may take tub baths or showers at any time. 4. You may use tampons if desired after 3 weeks. 5. Keep the area of episiotomy (stitches) clean and dry. 6. If you are not nursing, wear a good fitting, supportive bra during the day and limit fluid intake for at least 1 week to prevent breast engorgement. 7. Call the office, [phone], within the next week to make appointment for your 6 week checkup if it has not already been made. 8. Report any of the following occurrences to the doctor promptly: a. Heavy, excessive bleeding b. Chills, fever c. Burning or frequency of urination d. Pain or redness and breasts if nursing e. Increasing pain or swelling in episiotomy (stitches). In addition to the above instructions, the following additional should be followed: 1. No heavy lifting or straining (exercising) until after 6 week checkup. 2. Keep abdominal incision clean and dry: You may wear a dressing if more comfortable. 3. Make office appointment for 10 days after going home or as instructed by her doctor. Discharge Disposition: HOME SELF-CARE
[2021-07-28] MEDS: SENNOSIDES-DOCUSATE SODIUM 1 EACH TAB PO SCH (09:28)
[2021-07-28] MEDS: IBUPROFEN 600 MG TAB PO PRN (09:28)
[2021-07-28] MEDS: PRENATAL VIT-IRON-FOLIC ACID 1 EACH CAP PO SCH (09:28)
[2021-07-28 14:27] VITALS: BP 141/89; PULSE 106; RESP 16; TEMP 98
== END 2021-07-28 15:30 | disposition home or self-care (01) | DRG 807 ==
LOC: 4FBP 05:53
PROVIDERS: ADMIT Obstetrics & Gynecology; ATTEND Obstetrics & Gynecology
PROC: 0UQGXZZ Repair Vagina, External Approach (ICD-10-PCS; principal; 2021-07-27 13:37)
PROC: 0KQM0ZZ Repair Perineum Muscle, Open Approach (ICD-10-PCS; principal; 2021-07-27 13:37)
PROC: 3E033VJ Introduction of Other Hormone into Peripheral Vein, Percutaneous Approach (ICD-10-PCS; principal; 2021-07-27 13:37)
PROC: 10E0XZZ Delivery of Products of Conception, External Approach (ICD-10-PCS; principal; 2021-07-27 13:37)
PROC: 10907ZC Drainage of Amniotic Fluid, Therapeutic from Products of Conception, Via Natural or Artificial Opening (ICD-10-PCS; principal; 2021-07-27 13:37)
DX: O14.04 Mild to moderate pre-eclampsia, complicating childbirth (principal); Z37.0 Single live birth; O70.1 Second degree perineal laceration during delivery; O71.89 Other specified obstetric trauma; O72.1 Other immediate postpartum hemorrhage; Z3A.37 37 weeks gestation of pregnancy; O90.89 Other complications of the puerperium, not elsewhere classified; R06.02 Shortness of breath
CPT/HCPCS: 81003; 85025; 85384; 85610; 85730; 86850; 86900; 86901; 88307; 90471; 90707

== ENCOUNTER 2021-10-17 17:02 | Emergency (ER) | payer BC, OTHER ==
[2021-10-17 18:01] VITALS: TEMP 98.5
[2021-10-17] MEDS ORDERED: SODIUM CHLORIDE 0.9% 1,000 ML IV STA (21:50)
[2021-10-17] MEDS ORDERED: ONDANSETRON 4 MG/2 ML VIAL IVP STA (21:52)
[2021-10-17] MEDS ORDERED: MORPHINE SULFATE 4 MG/ML SYRINGE IV STA (21:52)
--- NOTE | 2021-10-17 22:05 | ED ---
Abdominal Pain HPI - General Chief Complaint: Abdominal Pain Stated Complaint: Post op surgery, abdominal pain Time Seen by Provider: 10/17/21 21:45 Source: patient, RN notes reviewed Mode of arrival: ambulatory Limitations: no limitations - History of Present Illness Initial Comments: This is a pleasant 20-year-old female had a cholecystectomy in [facility] by Dr. Aguirre. Patient states that she started getting right upper quadrant abdominal pain yesterday which is exacerbated by movement, palpation, and breathing. Patient denies any fever or chills. She denies any difficulty with bowel movements. She is not vomiting. No headache, no fever or chills, no changes in vision or hearing, no sore throat or difficulty with speech, no neck pain, no chest pain or shortness of breath, , no nausea or vomiting, no changes in urination or bowel movements, no numbness or tingling, no extremity pain, no skin rashes or lesions. Patient has no other significant past medical history. No chance of . Patient not taking pain medications currently. - Related Data Home Medications Medication Instructions Recorded Confirmed [place] Fe 1.5/30 Mg-Mcg 1 tab PO DAILY 10/17/21 10/17/21 Previous Rx's Medication Instructions Recorded Albuterol Sulfate [Albuterol 2 puff PO Q6H #8.5 gm 10/18/21 Sulfate Hfa] Doxycycline Monohydrate [Monodox] 100 mg PO Q12HR #14 cap 10/18/21 Allergies Allergy/AdvReac Type Severity Reaction Status Date / Time No Known Allergies Allergy Verified 10/17/21 22:45 Review of Systems ROS Statement: Those systems with pertinent positive or pertinent negative responses have been documented in the HPI. ROS Other: All systems not noted in ROS Statement are negative. Past Medical History Past Medical History: No Reported History Additional Past Medical History / Comment(s): gestational HTN History of Any Multi-Drug Resistant Organisms: None Reported Past Surgical History: No Surgical Hx Reported, Cholecystectomy Additional Past Surgical History / Comment(s): [place] teeth Past Anesthesia/Blood Transfusion Reactions: No Reported Reaction Past Psychological History: No Psychological Hx Reported Smoking Status: Never smoker Past Alcohol Use History: None Reported Past Drug Use History: None Reported - Past Family History Father Family Medical History: Hypertension General Exam - General Exam Comments Initial Comments: Patient appears in mild distress. Patient does not appear to be ill or toxic. Signs reviewed Limitations: no limitations General appearance: alert, in no apparent distress Head exam: Present: atraumatic, normocephalic, normal inspection Eye exam: Present: normal appearance, PERRL, EOMI. Absent: scleral icterus, conjunctival injection, periorbital swelling ENT exam: Present: normal exam, mucous membranes moist Neck exam: Present: normal inspection. Absent: tenderness, meningismus, lymphadenopathy Respiratory exam: Present: normal lung sounds bilaterally. Absent: respiratory distress, wheezes, rales, rhonchi, stridor Cardiovascular Exam: Present: regular rate, normal rhythm, normal heart sounds. Absent: systolic murmur, diastolic murmur, rubs, gallop, clicks GI/Abdominal exam: Present: soft, tenderness (Patient tender in the right upper quadrant. Postsurgical laparoscopic incisions appear to healing well. No evidence of secondary infection), normal bowel sounds. Absent: distended, guarding, rebound, rigid Extremities exam: Present: normal inspection, full ROM, normal capillary refill. Absent: tenderness, pedal edema, joint swelling, calf tenderness Back exam: Present: normal inspection Neurological exam: Present: alert, oriented X3, CN II-XII intact Psychiatric exam: Present: normal affect, normal mood Skin exam: Present: warm, dry, intact, normal color. Absent: rash Course Vital Signs 10/17/21 17:57 Temperature 98.5 F Pulse Rate 100 Respiratory 20 Rate Blood Pressure 151/82 O2 Sat by Pulse 100 Oximetry Medical Decision Making - Medical Decision Making Patient presents with right upper quadrant abdominal pain. Of course this could be related to the patient's recent cholecystectomy. Patient did have an elevated d-dimer. However CT the chest showed no evidence of pulmonary embolism. It did show evidence of early interstitial pneumonia in the right lower lobe. I'm going to cover the patient with antibiotics. I also added on a COVID-19 test which I am not going to make the patient wait for. With the patient. We'll cover doxycycline 100 mg twice a day. Patient knows to call her surgeon and her primary care physician tomorrow without fail. All questions answered. Plan discussed. Patient had modest elevations of liver enzymes of unknown clinical significance. Patient was told to return to the ER for any signs or symptoms worsen. Told to return immediately if any other problems arise. All questions answered. Treatment plan discussed. Patient in agreement Every effort has been made to ensure accuracy of this dictation. However, due to the limitations of electronic medical records and dictation devices, errors in charting still occur. - Lab Data Result diagrams: 10/17/21 22:19 10/17/21 23:15 Lab Results 10/17/21 10/17/21 10/17/21 Range/Units 22:19 22:19 22:19 WBC 10.3 (3.8-10.6) k/uL RBC 4.36 (3.80-5.40) m/uL Hgb 12.2 (11.4-16.0) gm/dL Hct 37.6 (34.0-46.0) % MCV 86.3 (80.0-100.0) fL MCH 28.0 (25.0-35.0) pg MCHC 32.5 (31.0-37.0) g/dL RDW 14.6 (11.5-15.5) % Plt Count 323 (150-450) k/uL MPV 8.3 Neutrophils % 75 % Lymphocytes % 18 % Monocytes % 4 % Eosinophils % 1 % Basophils % 0 % Neutrophils # 7.8 H (1.3-7.7) k/uL Lymphocytes # 1.9 (1.0-4.8) k/uL Monocytes # 0.4 (0-1.0) k/uL Eosinophils # 0.1 (0-0.7) k/uL Basophils # 0.0 (0-0.2) k/uL D-Dimer (<0.60) mg/L FEU Sodium (137-145) mmol/L Potassium (3.5-5.1) mmol/L Chloride (98-107) mmol/L Carbon Dioxide (22-30) mmol/L Anion Gap mmol/L BUN (7-17) mg/dL Creatinine (0.52-1.04) mg/dL Est GFR (CKD-EPI)AfAm (>60 ml/min/1.73 sqM) Est GFR (CKD-EPI)NonAf (>60 ml/min/1.73 sqM) Glucose (74-99) mg/dL Plasma Lactic Acid Kavin 0.9 (0.7-2.0) mmol/L Calcium (8.4-10.2) mg/dL Total Bilirubin (0.2-1.3) mg/dL AST (14-36) U/L ALT (4-34) U/L Alkaline Phosphatase (38-126) U/L C-Reactive Protein (<1.0) mg/dL Total Protein (6.3-8.2) g/dL Albumin (3.5-5.0) g/dL Lipase (23-300) U/L Urine Color Yellow Urine Appearance Cloudy H (Clear) Urine pH 5.5 (5.0-8.0) Ur Specific [place] 1.021 (1.001-1.035) Urine Protein Trace H (Negative) Urine Glucose (UA) Negative (Negative) Urine Ketones Negative (Negative) Urine Blood Negative (Negative) Urine Nitrite Negative (Negative) Urine Bilirubin Negative (Negative) Urine Urobilinogen <2.0 (<2.0) mg/dL Ur Leukocyte Esterase Large H (Negative) Urine RBC 15 H (0-5) /hpf Urine WBC 79 H (0-5) /hpf Ur Squamous Epith Cells 39 H (0-4) /hpf Urine Bacteria Moderate H (None) /hpf Urine Mucus Many H (None) /hpf Urine HCG, Qual (Not Detectd) 10/17/21 10/17/21 10/17/21 Range/Units 22:19 22:19 23:15 WBC (3.8-10.6) k/uL RBC (3.80-5.40) m/uL Hgb (11.4-16.0) gm/dL Hct (34.0-46.0) % MCV (80.0-100.0) fL MCH (25.0-35.0) pg MCHC (31.0-37.0) g/dL RDW (11.5-15.5) % Plt Count (150-450) k/uL MPV Neutrophils % % Lymphocytes % % Monocytes % % Eosinophils % % Basophils % % Neutrophils # (1.3-7.7) k/uL Lymphocytes # (1.0-4.8) k/uL Monocytes # (0-1.0) k/uL Eosinophils # (0-0.7) k/uL Basophils # (0-0.2) k/uL D-Dimer 1.49 H (<0.60) mg/L FEU Sodium 136 L (137-145) mmol/L Potassium 3.9 (3.5-5.1) mmol/L Chloride 108 H (98-107) mmol/L Carbon Dioxide 22 (22-30) mmol/L Anion Gap 6 mmol/L BUN 10 (7-17) mg/dL Creatinine 0.76 (0.52-1.04) mg/dL Est GFR (CKD-EPI)AfAm >90 (>60 ml/min/1.73 sqM) Est GFR (CKD-EPI)NonAf >90 (>60 ml/min/1.73 sqM) Glucose 96 (74-99) mg/dL Plasma Lactic Acid Kavin (0.7-2.0) mmol/L Calcium 8.0 L (8.4-10.2) mg/dL Total Bilirubin 0.4 (0.2-1.3) mg/dL AST 34 (14-36) U/L ALT 46 H (4-34) U/L Alkaline Phosphatase 89 (38-126) U/L C-Reactive Protein 3.9 H (<1.0) mg/dL Total Protein 6.0 L (6.3-8.2) g/dL Albumin 3.3 L (3.5-5.0) g/dL Lipase 62 (23-300) U/L Urine Color Urine Appearance (Clear) Urine pH (5.0-8.0) Ur Specific [place]ida (1.001-1.035) Urine Protein (Negative) Urine Glucose (UA) (Negative) Urine Ketones (Negative) Urine Blood (Negative) Urine Nitrite (Negative) Urine Bilirubin (Negative) Urine Urobilinogen (<2.0) mg/dL Ur Leukocyte Esterase (Negative) Urine RBC (0-5) /hpf Urine WBC (0-5) /hpf Ur Squamous Epith Cells (0-4) /hpf Urine Bacteria (None) /hpf Urine Mucus (None) /hpf Urine HCG, Qual Not Detected (Not Detectd) 10/17/21 Range/Units 23:57 WBC (3.8-10.6) k/uL RBC (3.80-5.40) m/uL Hgb (11.4-16.0) gm/dL Hct (34.0-46.0) % MCV (80.0-100.0) fL MCH (25.0-35.0) pg MCHC (31.0-37.0) g/dL RDW (11.5-15.5) % Plt Count (150-450) k/uL MPV Neutrophils % % Lymphocytes % % Monocytes % % Eosinophils % % Basophils % % Neutrophils # (1.3-7.7) k/uL Lymphocytes # (1.0-4.8) k/uL Monocytes # (0-1.0) k/uL Eosinophils # (0-0.7) k/uL Basophils # (0-0.2) k/uL D-Dimer (<0.60) mg/L FEU Sodium (137-145) mmol/L Potassium (3.5-5.1) mmol/L Chloride (98-107) mmol/L Carbon Dioxide (22-30) mmol/L Anion Gap mmol/L BUN (7-17) mg/dL Creatinine (0.52-1.04) mg/dL Est GFR (CKD-EPI)AfAm (>60 ml/min/1.73 sqM) Est GFR (CKD-EPI)NonAf (>60 ml/min/1.73 sqM) Glucose (74-99) mg/dL Plasma Lactic Acid Kavin (0.7-2.0) mmol/L Calcium (8.4-10.2) mg/dL Total Bilirubin (0.2-1.3) mg/dL AST (14-36) U/L ALT (4-34) U/L Alkaline Phosphatase (38-126) U/L C-Reactive Protein (<1.0) mg/dL Total Protein (6.3-8.2) g/dL Albumin (3.5-5.0) g/dL Lipase (23-300) U/L Urine Color Light Yellow Urine Appearance Clear (Clear) Urine pH 6.0 (5.0-8.0) Ur Specific [place]ida 1.020 (1.001-1.035) Urine Protein Negative (Negative) Urine Glucose (UA) Negative (Negative) Urine Ketones Negative (Negative) Urine Blood Negative (Negative) Urine Nitrite Negative (Negative) Urine Bilirubin Negative (Negative) Urine Urobilinogen <2.0 (<2.0) mg/dL Ur Leukocyte Esterase Large H (Negative) Urine RBC 1 (0-5) /hpf Urine WBC 17 H (0-5) /hpf Ur Squamous Epith Cells 4 (0-4) /hpf Urine Bacteria Rare H (None) /hpf Urine Mucus (None) /hpf Urine HCG, Qual (Not Detectd) - Radiology Data Radiology results: report reviewed, image reviewed Disposition Clinical Impression: Right lower lobe pneumonia, Right upper quadrant pain Narrative: Postsurgical abdominal pain Disposition: HOME SELF-CARE Condition: Good Instructions (If sedation given, give patient instructions): Community Acquired Pneumonia (ED), Abdominal Pain (ED) Additional Instructions: Take the antibiotic as directed. Call your surgeon and your regular doctor in the morning for reevaluation. Continue with [id number] acetaminophen and ibuprofen for pain control. Follow-up with your regular physician as directed. Return to the ER immediately if any symptoms worsen, new symptoms arise, or any other problems develop. Partake deep breathing, 10 deep breaths per hour while awake. Prescriptions: Albuterol Sulfate [Albuterol Sulfate Hfa] 2 puff PO Q6H #8.5 gm Doxycycline Monohydrate [Monodox] 100 mg PO Q12HR #14 cap Is patient prescribed a controlled substance at d/c from ED?: No Referrals: Moises Del Rosario MD [Primary Care Provider] - 1-2 days
--- NOTE | 2021-10-17 22:49 | XR ---
EXAMINATION TYPE: XR chest 1V portable DATE OF EXAM: 10/17/2021 COMPARISON: 09/27/2021 HISTORY: Abdominal pain TECHNIQUE: Single view FINDINGS: Heart and mediastinum are normal. Lungs are clear. Diaphragm is normal. Bony thorax appears normal. IMPRESSION: Normal chest. No change.
[2021-10-17 22:51] LABS: Basophils % (A) 0 %; Eosinophils # (A) 0.1 k/uL (0-0.7); Eosinophils % (A) 1 %; HCT 37.6 % (34.0-46.0); HGB 12.2 gm/dL (11.4-16.0); Lymphocytes # (A) 1.9 k/uL (1.0-4.8); Lymphocytes % (A) 18 %; MCHC 32.5 g/dL (31.0-37.0); MCV 86.3 fL (80.0-100.0); Mean Platelet Volume 8.3; Monocytes # (A) 0.4 k/uL (0-1.0); Monocytes % (A) 4 %; Neutrophils # (A) 7.8 k/uL (1.3-7.7); Neutrophils % (A) 75 %; Platelet Count 323 k/uL (150-450); RBC 4.36 m/uL (3.80-5.40); RDW 14.6 % (11.5-15.5); WBC 10.3 k/uL (3.8-10.6)
[2021-10-17 22:54] LABS: Appearance,Urine Cloudy (Clear); Bacteria,Urine Moderate /hpf; Bilirubin,Urine Negative (Negative); Blood,Urine Negative (Negative); Color,Urine Yellow; Glucose,Urine (UA) Negative (Negative); Ketones,Urine Negative (Negative); Leukocyte Esterase,Urine Large (Negative); Mucus,Urine Many /hpf; Nitrite,Urine Negative (Negative); PH, Urine 5.5 (5.0-8.0); Protein,Urine Trace (Negative); RBC,Urine 15 /hpf (0-5); Specific Gravity,Urine 1.021 (1.001-1.035); Squamous Epithelial Cell,Urine 39 /hpf (0-4); Urobilinogen,Urine <2.0 mg/dL (<2.0); WBC,Urine 79 /hpf (0-5)
[2021-10-17 23:41] LABS: ALT 46 U/L (4-34); AST 34 U/L (14-36); African American GFR (CKD) >90 (>60 ml/min/1.73 sqM); Albumin 3.3 g/dL (3.5-5.0); Alkaline Phosphatase 89 U/L (38-126); Anion Gap 6 mmol/L; Blood Urea Nitrogen 10 mg/dL (7-17); C Reactive Protein 3.9 mg/dL (<1.0); Carbon Dioxide 22 mmol/L (22-30); Chloride 108 mmol/L (98-107); Glucose 96 mg/dL (74-99); Lipase 62 U/L (23-300); Non-African American GFR(CKD) >90 (>60 ml/min/1.73 sqM); Potassium 3.9 mmol/L (3.5-5.1); Sodium 136 mmol/L (137-145); Total Bilirubin 0.4 mg/dL (0.2-1.3)
[2021-10-18 00:24] LABS: Appearance,Urine Clear (Clear); Bacteria,Urine Rare /hpf; Bilirubin,Urine Negative (Negative); Blood,Urine Negative (Negative); Color,Urine Light Yellow; Glucose,Urine (UA) Negative (Negative); Ketones,Urine Negative (Negative); Leukocyte Esterase,Urine Large (Negative); Nitrite,Urine Negative (Negative); Protein,Urine Negative (Negative); RBC,Urine 1 /hpf (0-5); Squamous Epithelial Cell,Urine 4 /hpf (0-4); Urobilinogen,Urine <2.0 mg/dL (<2.0); WBC,Urine 17 /hpf (0-5)
--- NOTE | 2021-10-18 00:24 | CT ---
EXAMINATION TYPE: CT abdomen pelvis w con DATE OF EXAM: 10/17/2021 COMPARISON: None HISTORY: Abd Pain CT DLP: 1747.90 mGycm Automated exposure control for dose reduction was used. CONTRAST: Performed with IV Contrast, patient injected with 100 mL of Isovue 370. Images obtained from the diaphragm to the floor the pelvis with IV contrast. There are some mild subsegmental atelectasis and interstitial density at the lung bases. There is no pleural effusion. There is no pericardial effusion. Heart size is normal. Liver spleen and stomach pancreas appear intact. There are clips from cholecystectomy. There is 3.5 c m rounded fluid density in the gallbladder fossa that could be pseudocyst. There is a second 4 cm intermediate density mass at the lateral aspect of the hepatic flexure of the colon that could be a complex fluid collection. There is no adrenal mass. Kidneys show satisfactory contrast opacification. There is no hydronephrosi s. The ureters are not dilated. Delayed images show normal renal excretion. There is 3.7 cm left ovar tamara cyst. Uterus is anteverted. Bladder distends smoothly. There is no pelvic free fluid. There is no sign of thickened appendix. There is no bowel obstruction. There is no free air. There is no ascites. There is no mesenteric karen a. Lumbar vertebrae have normal alignment. There is no compression fracture. The bony pelvis is intac t. Hip joints are intact. IMPRESSION: No evidence of renal stone or obstruction. No evidence of appendicitis. Left ovarian cyst. Sharply marginated cystic mass in the right upper quadrant at the reagan hepatis. This could be a bile leak. There is a second complex density lateral to the hepatic flexure of the colon and adjacent to the right lobe of the liver of intermediate density measuring 4 x 2.5 cm and could be additional bile leak or hematoma. Abscess not excluded.
--- NOTE | 2021-10-18 00:34 | CT ---
EXAMINATION TYPE: CT angio chest DATE OF EXAM: 10/17/2021 COMPARISON: None HISTORY: R/O PE CT DLP: 494.30 mGycm Automated exposure control for dose reduction was used. CONTRAST: Performed with IV Contrast, patient injected with 100 mL of Isovue 370. Images obtained from the thoracic inlet to the diaphragm with IV contrast. There are Three-D postprocessed images. The lungs show interstitial mild edema at the posterior lung bases. There is no pleural effusion. The re is no pericardial effusion. Heart size is fairly normal. There is no mediastinal adenopathy. There are no hilar masses. Thoracic aorta is intact. There is no aneurysm or dissection. There is normal contrast opacification of the pulmonary arteries. There are n o filling defects. Thoracic vertebra have normal spacing and alignment. Sternum is intact. There is no compression fract ure. IMPRESSION: There is minimal interstitial pneumonia and subsegmental atelectasis at the posterior lung bases. No evidence of pulmonary embolism.
[2021-10-18] MEDS ORDERED: DOXYCYCLINE 100 MG CAP PO STA (00:52)
[2021-10-18 01:22] VITALS: BP 142/75; PULSE 86; RESP 16
== END 2021-10-18 01:30 | disposition home or self-care (01) ==
LOC: EC 17:02
DX: R10.11 Right upper quadrant pain (principal); J18.0 Bronchopneumonia, unspecified organism; Z20.822 Contact with and (suspected) exposure to COVID-19
CPT/HCPCS: 36415; 85379; 80053; 83605; 83690; 85025; 86140; 81001; 81025; 87040; 87086; 87635; 71045; 71275; 74177; 99284; 96374; 96375; 96361; J2270; J2405; Q9967

== ENCOUNTER 2023-09-03 19:07 | Emergency (ER) | payer BC, OTHER ==
[2023-09-03 21:53] VITALS: BP 138/82; PULSE 72; RESP 18; TEMP 97.6
--- NOTE | 2023-09-03 21:56 | ED ---
Female Urogenital HPI - General Chief complaint: Vaginal Bleeding Stated complaint: Possible miscarriage 5 wks Time Seen by Provider: 09/03/23 21:32 Source: patient Mode of arrival: ambulatory Limitations: no limitations - History of Present Illness Initial comments: 22-year-old female presenting to the ED with a chief complaint of vaginal bleeding. Patient states that she is approximately 5 weeks . This was calculated with positive test at home and from calculation from last menstrual period. States yesterday started to have some spotting which has increased today. Also notes crampy abdominal pain which patient describes as feeling similar to a period. No other complaints. - Related Data Home Medications Medication Instructions Recorded Confirmed Blisovi Fe 1.5/30 Mg-Mcg 1 tab PO DAILY 10/17/21 10/17/21 Previous Rx's Medication Instructions Recorded Albuterol Sulfate [Albuterol 2 puff PO Q6H #8.5 gm 10/18/21 Sulfate Hfa] Doxycycline Monohydrate [Monodox] 100 mg PO Q12HR #14 cap 10/18/21 Allergies Allergy/AdvReac Type Severity Reaction Status Date / Time No Known Allergies Allergy Verified 09/03/23 19:16 Review of Systems ROS Statement: Those systems with pertinent positive or pertinent negative responses have been documented in the HPI. ROS Other: All systems not noted in ROS Statement are negative. Past Medical History Past Medical History: No Reported History Additional Past Medical History / Comment(s): gestational HTN History of Any Multi-Drug Resistant Organisms: None Reported Past Surgical History: No Surgical Hx Reported, Cholecystectomy Additional Past Surgical History / Comment(s): Lillian teeth Past Anesthesia/Blood Transfusion Reactions: No Reported Reaction Past Psychological History: No Psychological Hx Reported Smoking Status: Never smoker Past Alcohol Use History: None Reported Past Drug Use History: None Reported - Past Family History Father Family Medical History: Hypertension General Exam Limitations: no limitations General appearance: alert, in no apparent distress Eye exam: Present: normal appearance Respiratory exam: Present: normal lung sounds bilaterally Cardiovascular Exam: Present: regular rate, normal rhythm GI/Abdominal exam: Present: soft Neurological exam: Present: alert, oriented X3 Skin exam: Present: warm, dry Course Vital Signs 09/03/23 09/03/23 19:13 21:52 Temperature 97.0 F L 97.6 F Pulse Rate 90 72 Respiratory 16 18 Rate Blood Pressure 142/87 138/82 O2 Sat by Pulse 100 100 Oximetry Medical Decision Making - Medical Decision Making Was pt. sent in by a medical professional or institution (, [facility], [facility], urgent care, hospital, or penitentiary...) When possible be specific @ -No Did you speak to anyone other than the patient for history (EMS, parent, family, police, friend...)? What history was obtained from this source @ -No Did you review nursing and triage notes (agree or disagree)? Why? @ -I reviewed and agree with nursing and triage notes Were old charts reviewed (outside hosp., previous admission, EMS record, old EKG, old radiological studies, urgent care reports/EKG's, penitentiary records)? Report findings @ -No old charts were reviewed Differential Diagnosis (chest pain, altered mental status, abdominal pain women, abdominal pain men, vaginal bleeding, weakness, fever, dyspnea, syncope, headache, dizziness, GI bleed, back pain, seizure, CVA, palpatations, mental health, musculoskeletal)? @ -Differential Abdominal Pain Women: Appendicitis, Cholecystitis, diverticulosis, ischemic bowel, pancreatitis, hepatitis, UTI, gastroenteritis, AAA, incarcerated hernia, bowel obstruction, constipation, inflammatory bowel, hepatitis, peptic ulcer disease, splenic infarction, perforated viscus, vulvitis, ovarian torsion, PID, kidney stone, placenta abruption, this is not meant to be an all-inclusive list EKG interpreted by me (3pts min.). @ -None X-rays interpreted by me (1pt min.). @ -None done CT interpreted by me (1pt min.). @ -None done U/S interpreted by me (1pt. min.). @ -None done What testing was considered but not performed or refused? (CT, X-rays, U/S, labs)? Why? @ -None What meds were considered but not given or refused? Why? @ -None Did you discuss the management of the patient with other professionals (professionals i.e. [facility], [facility], lab, RT, psych nurse, social contact worker, hop separator, teacher, security public safety officer, case worker)? Give summary @ -No Was smoking cessation discussed for >3mins.? @ -No Was critical care preformed (if so, how long)? @ -No Were there social determinants of health that impacted care today? How? (Homelessness, low income, unemployed, alcoholism, drug addiction, transportation, low edu. Level, literacy, decrease access to med. care, [facility], rehab)? @ -No Was there de-escalation of care discussed even if they declined (Discuss DNR or withdrawal of care, Hospice)? DNR status @ -No What co-morbidities impacted this encounter? (DM, HTN, Smoking, COPD, CAD, Cancer, CVA, ARF, Chemo, Hep., AIDS, mental health diagnosis, sleep apnea, morbid obesity)? @ -None Was patient admitted / discharged? Hospital course, mention meds given and route , prescriptions, significant lab abnormalities, going to OR and other pertinent info. @ -Discharge 22-year-old female who thinks she is approximately 5 weeks presenting to the ED with complaints of vaginal bleeding and abdominal cramping. Urine hCG performed here. Patient is not . Discharged home in stable condition. Undiagnosed new problem with uncertain prognosis? @ -No Drug Therapy requiring intensive monitoring for toxicity (Heparin, Nitro, Insulin, Cardizem)? @ -No Were any procedures done? @ -No Diagnosis/symptom? @ -Vaginal bleeding, non state Acute, or Chronic, or Acute on Chronic? @ -Acute Uncomplicated (without systemic symptoms) or Complicated (systemic symptoms)? @ -Uncomplicated Side effects of treatment? @ -No Exacerbation, Progression, or Severe Exacerbation? @ -No Poses a threat to life or bodily function? How? (Chest pain, [place], NH, pneumonia, PE, COPD, DKA, ARF, appy, cholecystitis, CVA, Diverticulitis, Homicidal, Suicidal, threat to staff... and all critical care pts) @ -No - Lab Data Lab Results 09/03/23 Range/Units 19:18 Urine HCG, Qual Not Detected (Not Detectd) Disposition Clinical Impression: test negative, Vaginal bleeding Disposition: HOME SELF-CARE Condition: Good Additional Instructions: Please return to the Emergency Department if symptoms worsen or any other concerns. Please follow-up with your PCP/[facility]. Is patient prescribed a controlled substance at d/c from ED?: No Referrals: Moises Del Rosario MD [Primary Care Provider] - 1-2 days Time of Disposition: 21:58
== END 2023-09-03 22:30 | disposition home or self-care (01) ==
LOC: EC 19:07
DX: N93.9 Abnormal uterine and vaginal bleeding, unspecified (principal); Z32.02 Encounter for pregnancy test, result negative
CPT/HCPCS: 81025; 99284